=== PATIENT | female | born 1935 | race Caucasian/White ===

== ENCOUNTER 2025-03-20 14:51 | Inpatient (IN) | payer MEDICARE, OTHER ==
[~2025-03-20] VITALS: Ht 170.2 cm; Wt 73.2 kg
--- NOTE | 2025-03-20 15:16 | ED.PDOC ---
HPI Comments Robertyunior: Syncope HPI: Poor Historian. 89-year-old female brought in by ambulance from home after daughter witnessed a syncope without collapse. This happened after the patient had a shower and got up and was sitting on a chair while her daughter was air blowing drying her hair. Patient had a syncope and patient was assisted to the ground. When the patient regained consciousness she was in bed. She does not remember what happened. Per EMS, her initial vital signs were systolically in the 80s. Normal blood sugar, normal heart rate, no other acute symptoms. Denies any pain anywhere in her body. No trauma. Orthostatics were performed by EMS and they said that when she stood up her systolic blood pressure increased. Patient has history of dementia and is at baseline at this time. EMS reports that the patient when she had a syncopal/fainting episode she did vomit once. Past Medical History: Dementia, hyperkalemia, hypertension Past Surgical History: REVIEW OF SYSTEMS: CONSTITUTIONAL: Denies acute: fever, diaphoresis, chills, HEAD: Denies acute: headache, photophobia Eyes: Denies acute: Double vision, vision loss, eye pain, eye discharge. EARS: Denies acute: tinnitus, hearing loss, ear discharge, ear pain, THROAT: Denies acute: sore throat, swelling, difficulty swallowing , pain with swallowing, change in voice. NECK: Denies acute: neck pain, neck swelling, stiff neck. HEART: Denies acute : chest pain, palpitations, LUNGS: Denies acute: SOB, wheezing, cough, hemoptysis ABDOMEN: Denies acute: abdominal pain, Nausea, Vomiting, diarrhea, melena , hematemesis, hematochezia SKIN: Denies acute: rash, redness, lesions, itchiness. EXTREMITIES: Denies acute: calf pain, numbness, tingling, weakness, denies pain in extremity. Denies acute: Low back pain. Neuro: Denies acute: focal neurological deficit, motor or sensory focal neurological deficit, tremors, seizure like activity, confusion, , change in mental status, loss of bowel or bladder function, cauda equina like symptoms. : Denies acute: dysuria, hematuria, flank pain, increase in urinary frequency. PSYCH: Denies acute: hallucination, suicidal ideation, homicidal ideation. FEMALE: Denies acute: abnormal vaginal bleeding, foul odor, unusual discharge. PHYSICAL EXAM: General: -----no--acute distress, awake and alert. Head: normocephalic, atraumatic. Neck: supple, trachea is midline, no swelling. Throat: Normal phonation. Eyes:, no erythema, no purulent discharge, no proptosis, no icterus. Heart: regular rate, regular rhythm, no significant murmur appreciated. Lungs: no apparent respiratory distress, Able to speak in full sentences. No wheezing, no rhonchi, no crackles. No stridors Clear to auscultation bilaterally. Abdomen: non tender to palpation, non distended, soft, no guarding, no rebound, + bowel sounds. Neuro: Awake, Alert, oriented to name, self, situation, follows commands GCS=15. Speech is normal. Skin: no petechia, no purpura, no cyanosis, non-pale, not jaundice. Lower extremities: --no - Pitting edema no deformity, no focal swelling, no calf TTP. Makes eye contact. moves all four extremities. Face: no apparent facial droop. 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 ED COURSE: DISCLAIMER: This medical document was created using an electronic medical record system with voice recognition software and computerized dictation system. Although this document has been carefully reviewed, there might still be some phonetic and typographical errors. Occasional wrong-word or "sound-alike" substitutions may have occurred due to the inherent limitations of voice recognition software. These areas are purely typographical due to imperfections of the software programs and do not reflect any compromise in the patient's medical care. Please read the chart carefully and recognize, using context, where these substitutions have occurred. Chief Complaint: Syncope Time Seen by MD: 14:55 Primary Care Provider: UNKNOWN Reviewed Notes: Nurses Notes Allergies: Uncoded Allergies: lipitor,atorvastatin calcium (Allergy, Severe, 03/20/25) norco,vicodine,hydrocodone (Allergy, Severe, 03/20/25) Information Source: Patient Mode of Arrival: EMS X-Ray, Labs, Meds, VS Vital Signs Date Time Temp Pulse Resp B/P (MAP) Pulse Ox O2 Delivery O2 Flow Rate FiO2 03/20/25 20:46 97.6 90 16 181/80 (113) 96 97.6 03/20/25 18:28 68 16 98 Room Air* 0 21 03/20/25 17:33 97.9 88 18 158/66 (96) 96 97.9 03/20/25 15:08 98.3 78 16 126/67 (86) 95 98.3 03/20/25 14:52 81 Lab Test 03/20/25 18:36 03/20/25 16:39 03/20/25 15:49 Range/Units Troponin I High Sensitivity 4 3 L 3 L </=34 ng/L White Blood Count 7.4 4.4-10.8 10^3/uL Red Blood Count 4.66 4.0-5.20 10^6/uL Hemoglobin 13.9 12.2-16.2 g/dL Hematocrit 40.7 36.0-46.0 % Mean Corpuscular Volume 87.3 80.0-100.0 fL Mean Corpuscular Hemoglobin 29.8 28.0-32.0 pg Mean Corpuscular Hemoglobin Concent 34.1 32.0-36.0 g/dL Red Cell Distribution Width 14.2 11.8-14.3 % Platelet Count 277 140-450 10^3/uL Mean Platelet Volume 7.9 6.9-10.8 fL Neutrophils (%) (Auto) 72.0 37.0-80.0 % Lymphocytes (%) (Auto) 20.4 10.0-50.0 % Monocytes (%) (Auto) 5.9 0.0-12.0 % Eosinophils (%) (Auto) 1.2 0.0-7.0 % Basophils (%) (Auto) 0.5 0.0-2.0 % Neutrophils # (Auto) 5.4 1.6-8.6 10 ^3/uL Lymphocytes # (Auto) 1.5 0.4-5.4 10 ^3/uL Monocytes # (Auto) 0.4 0-1.3 10 ^3/uL Eosinophils # (Auto) 0.1 0-0.8 10 ^3/uL Basophils # (Auto) 0 0-0.2 10 ^3/uL Nucleated Red Blood Cells 0.0 % Sodium Level 140 136-145 mmol/L Potassium Level 4.2 3.5-5.1 mmol/L Chloride Level 105 98-107 mmol/L Carbon Dioxide Level 28 20-31 mmol/L Anion Gap 7 5-15 Blood Urea Nitrogen 24 H 9-23 mg/dL Creatinine 1.05 H 0.550-1.02 mg/dL Glomerular Filtration Rate Calc 51 >90 mL/min BUN/Creatinine Ratio 22.9 H 10.0-20.0 Serum Glucose 94 74-106 mg/dL Lactic Acid Level 1.2 0.4-2.0 mmol/L Calcium Level 10.0 8.7-10.4 mg/dL Magnesium Level 2.3 1.6-2.6 mg/dL Total Bilirubin 0.4 0.2-1.0 mg/dL Aspartate Amino Transferase (AST) 21 <34 U/L Alanine Aminotransferase (ALT) 14 7-40 U/L Alkaline Phosphatase 76 46-116 U/L Total Protein 6.7 5.7-8.2 g/dL Albumin 4.5 3.2-4.8 g/dL Current Medications Medications (Trade) Dose Ordered Sig/Herlinda Route Start Time Stop Time Status Last Admin Sodium Chloride 1,000 ml @ 1,000 mls/hr Q1H ONCE IV 03/20/25 15:15 03/20/25 16:14 DC 03/20/25 15:50 Ceftriaxone Sodium 50 ml @ 100 mls/hr ONCE ONCE IV 03/20/25 17:45 03/20/25 18:14 DC 03/20/25 18:27 [place] [id number] Ph: [phone] DIAGNOSTIC IMAGING Diagnostic Imaging Report : [id number] Signed PATIENT: YUNIOR BARILLAS ACCT: [id number] UNIT: [id number] : 1935 LOC: ER ROOM / BED: / AGE / SEX: 89 / F ADM STATUS: REG ER SERVICE [id number] ORDERING PHYSICIAN: YAMILET DONNELLY DO PROCEDURE(s): CXRP - CHEST PORTABLE REASON: Syncope ORDER NUMBER(s): [id number], ACCESSION NUMBER(s): [id number] CHEST RADIOGRAPH Indication: Syncope Technique: Single frontal view of the chest was obtained COMPARISON: None FINDINGS: The cardiac silhouette is enlarged. The lungs demonstrate bilateral patchy airspace opacities, most pronounced in the left lower. The pulmonary vasculature is prominent. Small left pleural. There is no pneumothorax. Aortic atherosclerotic disease. IMPRESSION: As above ATED BY: NETTE WILLIAMSON MD DICTATED DATE/TIME: 03/20/25 1603 SIGNED BY: NETTE WILLIAMSON MD SIGNED DATE/TIME: 03/20/25 1603 CC: Departure 1 Departure Time of Disposition: 15:30 Impression: Primary Impression: Syncope Additional Impressions: Hypotension Lung infiltrate Additional Instructions: Discharged With: Self Critical Care Note Critical Care Time?: No I personally scribed for YAMILET DONNELLY DO ([email or web address]) on 03/20/25 at 15:16. Electronically submitted by Jose Li ([facility] [employer] I personally scribed for YAMILET DONNELLY DO ([email or web address]) on 03/20/25 at 17:36. Electronically submitted by Jose Li ([facility] [employer] I personally scribed for YAMILET DONNELLY DO ([email or web address]) on 03/20/25 at 20:47. Electronically submitted by Jose Li ([email or web address]). I personally scribed for YAMILET DONNELLY DO ([email or web address]) on 03/20/25 at 21:29. Electronically submitted by Jose Li ([facility] [employer]). YAMILET DONNELLY DO Mar 20, 2025 15:16
[2025-03-20] MEDS: SODIUM CHLORIDE 0.9% 1,000 ML IV ONE (15:50)
--- NOTE | 2025-03-20 16:06 | DVH ---
CHEST RADIOGRAPH Indication: Syncope Technique: Single frontal view of the chest was obtained COMPARISON: None FINDINGS: The cardiac silhouette is enlarged. The lungs demonstrate bilateral patchy airspace opacities, most p ronounced in the left lower. The pulmonary vasculature is prominent. Small left pleural. There is no pneumothorax. Aortic atherosclerotic disease. IMPRESSION: As above
[2025-03-20 16:24] LABS: Basophils # (auto) 0 10 ^3/uL (0-0.2); Basophils % (auto) 0.5 % (0.0-2.0); Eosinophils # (auto) 0.1 10 ^3/uL (0-0.8); Eosinophils % (auto) 1.2 % (0.0-7.0); Hematocrit 40.7 % (36.0-46.0); Hemoglobin 13.9 g/dL (12.2-16.2); Lymphocytes # (auto) 1.5 10 ^3/uL (0.4-5.4); Lymphocytes % (auto) 20.4 % (10.0-50.0); Mean Corpuscular Hemoglobin 29.8 pg (28.0-32.0); Mean Corpuscular Hgb Conc. 34.1 g/dL (32.0-36.0); Mean Corpuscular Volume 87.3 fL (80.0-100.0); Monocytes # (auto) 0.4 10 ^3/uL (0-1.3); Monocytes % (auto) 5.9 % (0.0-12.0); Neutrophils # (auto) 5.4 10 ^3/uL (1.6-8.6); Platelet Count (auto) 277 10^3/uL (140-450); Red Blood Cells 4.66 10^6/uL (4.0-5.20); Red Cell Distribution Width 14.2 % (11.8-14.3); White Blood Cell 7.4 10^3/uL (4.4-10.8)
[2025-03-20 16:28] LABS: Alanine Aminotransferase 14 U/L (7-40); Albumin 4.5 g/dL (3.2-4.8); Alkaline Phosphatase 76 U/L (46-116); Anion Gap 7 (5-15); Aspartate Aminotransferase 21 U/L (<34); BUN/Creatinine Ratio 22.9 (10.0-20.0); Blood Urea Nitrogen 24 mg/dL (9-23); Carbon Dioxide 28 mmol/L (20-31); Chloride 105 mmol/L (98-107); Glucose 94 mg/dL (74-106); Magnesium 2.3 mg/dL (1.6-2.6); Potassium 4.2 mmol/L (3.5-5.1); Sodium 140 mmol/L (136-145); Total Protein 6.7 g/dL (5.7-8.2)
[2025-03-20 16:29] LABS: Bilirubin, Total 0.4 mg/dL (0.2-1.0)
[2025-03-20] MEDS: cefTRIAXone 1GM/50ML D5W 50 ML IV ONE (18:27)
[2025-03-20 18:28] VITALS: PULSE 68; RESP 16; O2SAT 98
--- NOTE | 2025-03-20 18:58 | ECG ---
[facility] Test Date: 2025-03-20 Test Time: 14:52:11 Pat Name: HOLLY BARILLAS Department: ED Room: 0220T Gender: F Access Clerk: DEBRA : 1935 Requested By: YAMILET DONNELLY Order Number: [id number] Reading MD: Wenceslao Escobedo Measurements Intervals [place] Rate: 81 P: 77 DC: 152 QRS: 10 QRSD: 69 T: 74 QT: 382 QTc: 444 Interpretive Statements Sinus rhythm Borderline T wave abnormalities Electronically Signed On 03-21-2025 20:13:14 PDT by Wenceslao Escobedo Please click the below link to view image of tracing.
[2025-03-20 21:36] LABS: Urine Bacteria None Seen /hpf (None Seen)
[2025-03-20 21:54] LABS: Urine Blood Negative /uL (Negative); Urine Clarity Clear (Clear); Urine Color Yellow (Yellow); Urine Protein, UAD Negative (Negative); Urine Squamous Epithelial Cell FEW /hpf (<5); Urine Urobilinogen Normal (Negative); Urine WBC 48 /HPF (0-5); Urine pH 6.5 (5.0-9.0)
[2025-03-20] MEDS: hydrALAZINE HCL 20 MG/ML VL IV ONE (22:54)
--- NOTE | 2025-03-20 23:14 | DVHHP2 ---
History of Present Illness Reason for Visit: Syncope History of Present Illness The patient is a 89-year-old female with past medical history of dementia and hypertension who presented to [facility] for evaluation of witnessed syncopal episode. As reported by daughter, the patient had a shower, got up sitting on a chair while her daughter was air blowing drying her hair, she had syncope and was assisted to the ground. When the patient regained consciousness in bed, she does not recall what happened. Patient was seen and evaluated in the ED, laboratory data shows WBC 7.4, platelets 277, sodium 140, potassium 4.2, BUN 24, creatinine 1.05, glucose 94, calcium 10.0, troponin 3, blood pressure 163/74, heart rate 92, temperature 97.8 F, O2 saturation 96% on room air. Chest x-ray revealing bilateral patchy airspace opacities, most pronounced in the left lower, the pulmonary vasculature is prominent, small left pleural, no pneumothorax. Please see medication orders section in the computer. On my assessment, family member at bedside, patient denied chest pain, no headache, no dizziness, no diaphoresis, no shortness of breath, no nausea, no vomiting, no fever, no chills. Patient was admitted for further evaluation and medical management. Past Medical History Dementia, hyperkalemia, hypertension Past Surgical History Denies all surgeries Family History Reviewed, noncontributory to the management of this case. Past Social History The patient lives at home, denies smoking, alcohol or illicit drugs abuse. Review of Systems Constitutional: Yes: Weakness; No: Fever, Chills, Sweats, Malaise, Other Eyes: No: Pain, Vision change, Conjunctivae inflammation, Eyelid inflammation, Other, Redness ENT: No: Ear pain, Ear discharge, Nose pain, Nose discharge, Nose congestion, Mouth pain, Mouth swelling, Throat pain, Throat swelling, Other Respiratory: No: Cough, Dry, Shortness of breath, SOB with excertion, Wheezing, Hemoptysis, Pleuritic Pain, Sputum, Wheezing, Other Cardiovascular: Other (Syncope); No: Chest Pain, Palpitations, Orthopnea, Paroxysmal Noc. Dyspnea, Edema, Lt Headedness Gastrointestinal: No: Nausea, Vomiting, Abdominal Pain, Diarrhea, Constipation, Melena, Hematochezia, Other Genitourinary: No Dysuria, No Frequency, No Incontinence, No Hematuria, No Re tention, No Other Musculoskeletal: No: other, neck pain, shoulder pain, arm pain, back pain, hand pain, leg pain, foot pain Skin: No: Rash, Lesions, Jaundice, Bruising, Other Neurological: No: Weakness, Numbness, Incoordination, Change in speech, Confusion, Seizures, Other Allergies: Uncoded Allergies: lipitor,atorvastatin calcium (Allergy, Severe, 03/20/25) norco,vicodine,hydrocodone (Allergy, Severe, 03/20/25) Medications Current Medications Medications Dose Ordered Sig/Herlinda Route Start Time Stop Time Status Last Admin Dose Admin Hydralazine HCl 10 mg Q6HP PRN IV 03/20/25 23:15 Lisinopril 20 mg DAILY PO 03/21/25 10:00 Ondansetron HCl 4 mg Q4HP PRN IV 03/20/25 23:15 Docusate Sodium 100 mg BIDPRN PRN PO 03/20/25 23:15 Acetaminophen 650 mg Q6HP PRN PO 03/20/25 23:15 Future Hold Exam Vital Signs Vital Signs Date Time Temp Pulse Resp B/P (MAP) Pulse Ox O2 Delivery O2 Flow Rate FiO2 03/20/25 22:54 163/74 03/20/25 22:49 97.8 92 20 96 97.8 03/20/25 18:28 Room Air* 0 21 General Appearance: Alert, Oriented X3, Cooperative, No acute distress HEENT: Atraumatic, PERRLA, EOMI, Mucous membr. moist/pink Respiratory: Normal air movement Cardiovascular: Regular rate, Normal S1, Normal S2, No murmurs Abdominal: Normal bowel sounds, Soft, No tenderness, No hepatospenomegaly, No masses Extremities: No clubbing, No cyanosis, No edema, Normal pulses, No tenderness/swelling Skin: No rashes, No breakdown, No significant lesion Neuro: Normal speech, Normal tone, Sensation intact, Cranial nerves 3-12 NL, Reflexes 2+, Other (Generalized weakness) Psych/Mental Status: Mood NL Labs/Xrays Labs Test 03/20/25 20:23 03/20/25 18:36 03/20/25 15:49 Range/Units Urine Color Yellow Yellow Urine Clarity Clear Clear Urine pH 6.5 5.0-9.0 Urine Specific [place] 1.020 1.001-1.035 Urine Protein Negative Negative Urine Ketones Negative Negative Urine Blood Negative Negative /uL Urine Nitrite Negative Negative Urine Bilirubin Negative Negative Urine Urobilinogen Normal Negative mg/dL Urine Leukocyte Esterase 3+ Negative /uL Urine RBC 3 0 - 4 /hpf Urine Microscopic WBC 48 H 0-5 /HPF Urine Squamous Epithelial Cells Few <5 /hpf Urine Bacteria None seen None Seen /hpf Urine Glucose Normal Normal mg/dL Troponin I High Sensitivity 4 </=34 ng/L White Blood Count 7.4 4.4-10.8 10^3/uL Red Blood Count 4.66 4.0-5.20 10^6/uL Hemoglobin 13.9 12.2-16.2 g/dL Hematocrit 40.7 36.0-46.0 % Mean Corpuscular Volume 87.3 80.0-100.0 fL Mean Corpuscular Hemoglobin 29.8 28.0-32.0 pg Mean Corpuscular Hemoglobin Concent 34.1 32.0-36.0 g/dL Red Cell Distribution Width 14.2 11.8-14.3 % Platelet Count 277 140-450 10^3/uL Mean Platelet Volume 7.9 6.9-10.8 fL Neutrophils (%) (Auto) 72.0 37.0-80.0 % Lymphocytes (%) (Auto) 20.4 10.0-50.0 % Monocytes (%) (Auto) 5.9 0.0-12.0 % Eosinophils (%) (Auto) 1.2 0.0-7.0 % Basophils (%) (Auto) 0.5 0.0-2.0 % Neutrophils # (Auto) 5.4 1.6-8.6 10 ^3/uL Lymphocytes # (Auto) 1.5 0.4-5.4 10 ^3/uL Monocytes # (Auto) 0.4 0-1.3 10 ^3/uL Eosinophils # (Auto) 0.1 0-0.8 10 ^3/uL Basophils # (Auto) 0 0-0.2 10 ^3/uL Nucleated Red Blood Cells 0.0 % Sodium Level 140 136-145 mmol/L Potassium Level 4.2 3.5-5.1 mmol/L Chloride Level 105 98-107 mmol/L Carbon Dioxide Level 28 20-31 mmol/L Anion Gap 7 5-15 Blood Urea Nitrogen 24 H 9-23 mg/dL Creatinine 1.05 H 0.550-1.02 mg/dL Glomerular Filtration Rate Calc 51 >90 mL/min BUN/Creatinine Ratio 22.9 H 10.0-20.0 Serum Glucose 94 74-106 mg/dL Lactic Acid Level 1.2 0.4-2.0 mmol/L Calcium Level 10.0 8.7-10.4 mg/dL Magnesium Level 2.3 1.6-2.6 mg/dL Total Bilirubin 0.4 0.2-1.0 mg/dL Aspartate Amino Transferase (AST) 21 <34 U/L Alanine Aminotransferase (ALT) 14 7-40 U/L Alkaline Phosphatase 76 46-116 U/L Total Protein 6.7 5.7-8.2 g/dL Albumin 4.5 3.2-4.8 g/dL PATIENT: HOLLY BARILLAS ACCT: [id number] UNIT: [id number] : 1935 LOC: ER ROOM / BED: / AGE / SEX: 89 / F ADM STATUS: REG ER SERVICE [id number] ORDERING PHYSICIAN: YAMILET DONNELLY DO PROCEDURE(s): CXRP - CHEST PORTABLE REASON: Syncope ORDER NUMBER(s): [id number], ACCESSION NUMBER(s): [id number] CHEST RADIOGRAPH Indication: Syncope Technique: Single frontal view of the chest was obtained COMPARISON: None FINDINGS: The cardiac silhouette is enlarged. The lungs demonstrate bilateral patchy airspace opacities, most pronounced in the left lower. The pulmonary vasculature is prominent. Small left pleural. There is no pneumothorax. Aortic atherosclerotic disease. IMPRESSION: As above Assessment/Plan Assessment/Plan Syncope Hypertension Lung infiltrate Generalized weakness Plan 1. Admit to telemetry unit 2. Breathing treatment 3. Pain control management 4. IV antibiotic management 5. Management of fluids and electrolytes 6. Consultation for hospitalist 7. Diagnostic test chest x-ray 8. DVT prophylaxis-on SCDs 9. Repeat labs CBC, CMP in a.m. 10. Home medication reviewed and reconciled 11. Continue with current medical management 12. Treatment plan discussed with patient and RN. Patient verbalized understanding. Plan discussed with: Patient, Daughter (At bedside), Other (RN) My Orders Orders - CLINT STREETER DNP Procedure Category Date Status Time Hydralazine Injection PHA 03/20/25 In Process (Apresoline Inject 23:15 Lisinopril Tablet PHA 03/21/25 In Process (Zestril Tablet) 10:00 Allergies LUANN 03/20/25 In Process 23:02 Code Status CODE 03/20/25 Transmitted 23:02 Oxygen Per Hour RT 03/20/25 Transmitted 23:02 Ondansetron Hcl PHA 03/20/25 In Process (Zofran) 23:15 Docusate Sodium PHA 03/20/25 In Process Capsule (Colace 23:15 Fall Risk Precautions LUANN 03/20/[address] 23:02 Complete Blood Count LAB 03/21/25 Verified 04:00 Comprehensive LAB 03/21/25 Verified Metabolic Panel 04:00 Cardiac DIET 03/21/25 Transmitted Diet-2gna,Lofat,Lochol Breakfast Condition: Serious LUANN 03/20/25 In Process 23:02 Acetaminophen Tablet PHA 03/20/25 In Process (Tylenol Tablet) 23:15 Bedrest With Bathroom LUANN 03/20/25 In Process Privileg 23:02 Sequential LUANN 03/20/25 In Process Compression Device Problem List: (1) Syncope (2) Hypertension (3) Lung infiltrate (4) Generalized weakness Date of Service: Mar 20, 2025 Billing Provider: CLINT STREETER DNP Common Visit Codes: [id number] INP/OBS CARE (HIGH) CLINT STREETER DNP Mar 20, 2025 23:13
[2025-03-20] MEDS ORDERED: ACETAMINOPHEN 325 MG TAB PO PRN (23:15)
[2025-03-20] MEDS ORDERED: ONDANSETRON HCL 4 MG/2 ML VIAL IV PRN (23:15)
[2025-03-20] MEDS ORDERED: NITROGLYCERIN 0.4 MG SL TAB SL PRN (23:15)
[2025-03-20] MEDS ORDERED: MORPHINE SULFATE INJ 2 MG/ml SYRG IV PRN ×2 (23:15→23:45)
[2025-03-20] MEDS ORDERED: DOCUSATE SOD 100 MG CAP PO PRN (23:15)
[2025-03-21] VITALS (8 sets, daily range): BP systolic 140–178; BP diastolic 64–94; PULSE 77–105; RESP 16–20; TEMP 97.5–98.3; O2SAT 95–100
[2025-03-21] MEDS ORDERED: EZET-10 PO (00:43)
[2025-03-21] MEDS ORDERED: LISI20TA56 PO (00:43)
[2025-03-21 07:32] LABS: Basophils # (auto) 0 10 ^3/uL (0-0.2); Basophils % (auto) 0.5 % (0.0-2.0); Eosinophils # (auto) 0.2 10 ^3/uL (0-0.8); Eosinophils % (auto) 2.1 % (0.0-7.0); Hematocrit 38.1 % (36.0-46.0); Hemoglobin 12.8 g/dL (12.2-16.2); Lymphocytes # (auto) 2.7 10 ^3/uL (0.4-5.4); Mean Corpuscular Hemoglobin 29.4 pg (28.0-32.0); Mean Corpuscular Hgb Conc. 33.6 g/dL (32.0-36.0); Mean Corpuscular Volume 87.4 fL (80.0-100.0); Monocytes # (auto) 0.6 10 ^3/uL (0-1.3); Monocytes % (auto) 6.6 % (0.0-12.0); Neutrophils # (auto) 5.7 10 ^3/uL (1.6-8.6); Neutrophils % (auto) 61.8 % (37.0-80.0); Nucleated Red Blood Cells % 0.1 %; Platelet Count (auto) 264 10^3/uL (140-450); Red Blood Cells 4.36 10^6/uL (4.0-5.20); Red Cell Distribution Width 14.2 % (11.8-14.3); White Blood Cell 9.3 10^3/uL (4.4-10.8)
[2025-03-21 08:09] LABS: Alanine Aminotransferase 13 U/L (7-40); Albumin 4.2 g/dL (3.2-4.8); Alkaline Phosphatase 70 U/L (46-116); Anion Gap 11 (5-15); Aspartate Aminotransferase 23 U/L (<34); BUN/Creatinine Ratio 19.3 (10.0-20.0); Bilirubin, Total 0.7 mg/dL (0.2-1.0); Blood Urea Nitrogen 17 mg/dL (9-23); Calcium 9.9 mg/dL (8.7-10.4); Carbon Dioxide 24 mmol/L (20-31); Chloride 106 mmol/L (98-107); Glucose 87 mg/dL (74-106); Potassium 3.5 mmol/L (3.5-5.1); Sodium 141 mmol/L (136-145); Total Protein 6.6 g/dL (5.7-8.2)
[2025-03-21] MEDS: AZITHROMYCIN 500MG/ 250ML 250 ML IV SCH (09:23)
[2025-03-21] MEDS: LISINOPRIL 20 MG TAB PO SCH (09:23)
--- NOTE | 2025-03-21 12:57 | DVHPN2 ---
Reviewed: Care Plan, H&P, Labs, Medications, Previous Orders, Radiology Changes from previous H/P or p: No Changes Eyes: No Pain, No Vision change, No Conjunctivae inflammation, No Eyelid inflammation, No Other, No Redness ENT: No Ear pain, No Ear discharge, No Nose pain, No Nose discharge, No Nose congestion, No Mouth pain, No Mouth swelling, No Throat pain, No Throat swelling, No Other Cardiovascular: No Chest Pain, No Palpitations, No Orthopnea, No Paroxysmal Noc. Dyspnea, No Edema, No Lt Headedness; Other (Syncope) Respiratory: No Cough, No Dry, No Shortness of breath, No SOB with excertion, No Wheezing, No Hemoptysis, No Pleuritic Pain, No Sputum, No Other Gastrointestinal: No Nausea, No Vomiting, No Abdominal Pain, No Diarrhea, No Constipation, No Melena, No Hematochezia, No Other Genitourinary: No Dysuria, No Frequency, No Incontinence, No Hematuria, No Retention, No Other Musculoskeletal: No other, No neck pain, No shoulder pain, No arm pain, No back pain, No hand pain, No leg pain, No foot pain Skin: No Rash, No Lesions, No Jaundice, No Bruising, No Other Objective Vitals Vital Signs Date Time Temp Pulse Resp B/P (MAP) Pulse Ox O2 Delivery O2 Flow Rate FiO2 03/21/25 09:23 166/76 03/21/25 08:56 98.2 85 16 96 98.2 03/21/25 00:38 Room Air* 0 21 Intake/Output Intake and Output 03/21/25 07:00 Intake Total 1050 ml Balance 1050 ml Intake Oral 0 ml IV Total 1050 ml # Voids 1 Medications Current Medications Medications Dose Ordered Sig/Herlinda Route Start Time Stop Time Status Last Admin Dose Admin Hydralazine HCl 10 mg Q6HP PRN IV 03/20/25 23:15 Lisinopril 20 mg DAILY PO 03/21/25 10:00 03/21/25 09:23 20 MG Ondansetron HCl 4 mg Q4HP PRN IV 03/20/25 23:15 Docusate Sodium 100 mg BIDPRN PRN PO 03/20/25 23:15 Nitroglycerin 0.4 mg Q5MINP PRN SL 03/20/25 23:15 Morphine Sulfate 2 mg Q30M PRN IV 03/20/25 23:45 Hold Azithromycin 250 ml @ 125 mls/hr DAILY IV 03/21/25 10:00 03/21/25 09:23 125 MLS/HR Laboratory Results Laboratory Tests 03/21/25 05:23 Chemistry Test 03/20/25 15:49 03/21/25 05:23 Albumin 4.5 g/dL (3.2-4.8) 4.2 g/dL (3.2-4.8) Calcium Level 10.0 mg/dL (8.7-10.4) 9.9 mg/dL (8.7-10.4) Magnesium Level 2.3 mg/dL (1.6-2.6) Total Protein 6.7 g/dL (5.7-8.2) 6.6 g/dL (5.7-8.2) LFT Test 03/20/25 15:49 03/21/25 05:23 Alanine Aminotransferase (ALT) 14 U/L (7-40) 13 U/L (7-40) Alkaline Phosphatase 76 U/L (46-116) 70 U/L (46-116) Aspartate Amino Transferase (AST) 21 U/L (<34) 23 U/L (<34) Total Bilirubin 0.4 mg/dL (0.2-1.0) 0.7 mg/dL (0.2-1.0) Urinalysis Test 03/20/25 20:23 Urine Color Yellow (Yellow) Urine Clarity Clear (Clear) Urine pH 6.5 (5.0-9.0) Urine Specific [place] 1.020 (1.001-1.035) Urine Protein Negative (Negative) Urine Ketones Negative (Negative) Urine Blood Negative /uL (Negative) Urine Nitrite Negative (Negative) Urine Bilirubin Negative (Negative) Urine Urobilinogen Normal mg/dL (Negative) Urine Leukocyte Esterase 3+ /uL (Negative) Urine RBC 3 /hpf (0 - 4) Urine Microscopic WBC 48 /HPF (0-5) H Urine Squamous Epithelial Cells Few /hpf (<5) Urine Bacteria None seen /hpf (None Seen) Urine Glucose Normal mg/dL (Normal) Labs and/or images reviewed: Labs reviewed by me, Image(s) reviewed by me Assessment/Plan Assessment/Plan Syncope : CT head carotid ultrasound neurology echocardiogram consult, cardiology consult Hypertension Lung infiltrate : Azithromycin UTI: Urine cultures Rocephin Generalized weakness Daughter Isaura at bedside Not stable for transfer to [place] Patient is full code Time spent 70 mts Advanced care planning time 20 mts Plan discussed with: Patient My Orders Orders - DARRIN TERRY MD Procedure Category Date Status Time Head Without Contrast CT 03/21/25 Transmitted 12:50 Carotid Duplx W Color US 03/21/25 Transmitted DOP 12:50 Date of Service: Mar 21, 2025 Billing Provider: DARRIN TERRY MD Common Visit Codes: [id number] CARE 30-74 MIN DARRIN TERRY MD Mar 21, 2025 12:57
[2025-03-21] MEDS: cefTRIAXone 1GM/50ML D5W 50 ML IV ONE (14:29)
--- NOTE | 2025-03-21 15:11 | DVH ---
EXAM: CT HEAD WITHOUT CONTRAST INDICATION: Syncope TECHNIQUE: CT of the head without intravenous contrast. Radiation Dose Information: CT Dose: CTDI volume is 52.61 mGy. Dose-length product is 863.9 mGy*cm The dose indicators for CT are the volume Computed Tomography (CT) Dose Index (CTDIvol) and the Dose Length Product (DLP), and are measured in units of mGy and mGy-cm, respectively. These indicators are not patient dose, but values generated from the CT scanner acquisition factors. The report includes radiation exposure data for exposures received during this examination. COMPARISON: None FINDINGS: There is no evidence of acute intracranial hemorrhage, extra-axial collection, mass effect, midline s hift, herniation or hydrocephalus. The ventricles, sulci and cisterns are age appropriate. The leroy-white differentiation is intact. Patchy periventricular and subcortical white matter hypoattenuation is nonspecific but may be related to small vessel ischemic disease. The visualized paranasal sinuses and mastoid air cells are clear. The surrounding soft tissues and osseous structures are unremarkable. IMPRESSION: 1. No acute intracranial abnormality.
--- NOTE | 2025-03-21 16:11 | DVH ---
US CAROTID DOPPLER CLINICAL INDICATION: syncope TECHNIQUE: Multiple grayscale, color Doppler and spectral Doppler ultrasound images were obtained thr oughout both carotid systems. COMPARISON: None FINDINGS: RIGHT: CCA PSV: 96 cm/s ECA PSV: 77 cm/s ICA PSV: 121 cm/s ICA EDV: 29 cm/s ICA/CCA Ratio: 1.3 Vertebral artery: Patent, antegrade flow. Grayscale images demonstrate mild calcified plaque at the carotid bifurcation and no visible stenosi s. Spectral analysis demonstrates no hemodynamically significant CCA or ICA stenosis. LEFT: CCA PSV: 72 cm/s ECA PSV: 140 cm/s ICA PSV: 103 cm/s ICA EDV: 20 cm/s ICA/CCA Ratio: 1.4 Vertebral artery: Patent, antegrade flow. Grayscale images demonstrate mild atherosclerotic plaque at the carotid bifurcation although no visib le stenosis. Spectral analysis demonstrates no hemodynamically significant CCA or ICA stenosis. IMPRESSION: No without evidence of hemodynamically significant CCA or ICA stenosis.
--- NOTE | 2025-03-21 18:39 | DVHINCON2 ---
Date of service: Mar 21, [address] Doll Reason for Consultation Syncope History of Present Illness Ms. Jones is a 89 years old right-handed female with a history of hypertension, hyperkalemia, dementia, she was brought to the [facility] on 03/20/2025 with a chief company of syncopal event, at this time, she is alert, oriented to person, place, with good social skills, but she does not remember why she came to the hospital. The history is obtained from her son, who is in the room, and chart review Apparently, after shower, when she was sitting in a chair, her daughter was air blowing drying her hair, she slumped and was helped by the family to the ground and then later she recovered mentally, without convulsion. Per EMS, her initial systolic blood pressure was in the 80s, she had normal glucose level, heart rate. She had a negative orthostatic vital tests at home. He has never had similar problems previously, no history of seizure She had progressive short-term memory difficulty for more than one year, she tatiana etimes does not remember her children's names. It isn't clear if the patient has seen a a doctor specific for her memory problems/dementia Urinalysis, 03/20/2025, WBC: 48, urine leukocyte esterase: 3+ CBC, 03/21/2025: Unremarkable CMP, 03/21/2025: Unremarkable Carotid Doppler, 03/21/2025: No without evidence of hemodynamically significant CCA or ICA stenosis. CT head, 03/21/2025: No acute intracranial abnormality Past Medical History Hypertension, hyperkalemia, dementia Past Surgical History Appendectomy Family History: Cerebrovascular accident (CVA) G8 MOTHER FH: colon cancer G8 FATHER Family History Hypertension, stroke, cancer, no dementia Social History She was a tobacco smoker, but no history of drug or alcohol abuse Allergies: Uncoded Allergies: lipitor,atorvastatin calcium (Allergy, Severe, 03/20/25) norco,vicodine,hydrocodone (Allergy, Severe, 03/20/25) Home Meds Reported Medications Ezetimibe (Ezetimibe) 10 Mg Tab, 0.5 TAB PO DAILY 03/21/25 Lisinopril (Lisinopril) 20 Mg Tab, 1 TAB PO DAILY 03/21/25 Current Medications Current Medications Medications (Trade) Dose Ordered Sig/Herlinda Route PRN Reason Start Time Stop Time Status Last Admin Hydralazine HCl (Apresoline Injection) 10 mg Q6HP PRN IV SBP>150 03/20/25 23:15 Lisinopril (Zestril Tablet) 20 mg DAILY PO 03/21/25 10:00 03/21/25 09:23 Ondansetron HCl (Zofran) 4 mg Q4HP PRN IV NAUSEA / VOMITING 03/20/25 23:15 Docusate Sodium (Colace Capsule) 100 mg BIDPRN PRN PO FOR CONSTIPATION 03/20/25 23:15 Acetaminophen (Tylenol Tablet) 650 mg Q6HP PRN PO PAIN SCALE 1-3 OR TEMP>100.4 03/20/25 23:15 03/21/25 00:29 DC Nitroglycerin (Ntrostat Sublingual) 0.4 mg Q5MINP PRN SL FOR CHEST PAIN 03/20/25 23:15 Morphine Sulfate 2 mg Q30M PRN IV FOR CHEST PAIN 03/20/25 23:15 03/20/25 23:38 DC Morphine Sulfate 2 mg Q30M PRN IV FOR CHEST PAIN 03/20/25 23:45 Hold Azithromycin 250 ml @ 125 mls/hr DAILY IV 03/21/25 10:00 03/21/25 09:23 Ceftriaxone Sodium 50 ml @ 100 mls/hr DAILY@09 IV 03/22/25 09:00 Review of Systems Reviewed, noncontributory to the management of this case. Vital Signs Vital Signs Date Time Temp Pulse Resp B/P (MAP) Pulse Ox O2 Delivery O2 Flow Rate FiO2 03/21/25 16:49 97.9 88 17 145/64 (91) 96 97.9 03/21/25 08:00 Room Air* 0 21 Physical Exam GENERAL EXAM: General: the patient is well developed and nourished. No acute distress. HEENT: Normocephalic, neck is supple, no carotid bruits. No mass. RESPIRATORY: Normal respiratory effort with symmetrical lung expansion. Lungs clear to auscultation. CARDIOVASCULAR: Regular rate and rhythm with no murmurs. S1, S2. ABDOMEN: Soft, nontender, normal bowel sound NEUROLOGICAL: MENTAL STATUS: Awake and alert. Oriented to person, place poor historian SPEECH, LANGUAGE, HIGHER CORTICAL FUNCTION: no aphasia or dysathria. CRANIAL NERVES: #2: Intact visual silva to confrontation. The optic discs were sharp. #3,4,6: Pupils are equal, round and reactive. EOMs full and conjugate. #5: Facial sensation intact in all three divisions bilaterally. Mandibular strength intact. #7: Facial muscles symmetrical and strength intact. #8: Hearing grossly normal to voice. #9,10: Uvula and soft palate rise in the midline. Swallow and voice are normal. #11: Trapezius and sternomastoid strength intact bilaterally. #12: Tongue midline. No fasciculations or atrophy. SENSATION: Sensation to touch and pinprick is normal. MOTOR: Normal tone in the upper and lower extremity. Normal muscle bulk. No fasciculations. No abnormal movements or posturing. Muscle strength of the major groups in the upper extremities is 5/5. Muscle strength of the major groups in the lower extremities is 5/5. REFLEXES: Deep tendon reflexes normal and symmetrical. No pathological reflexes. CEREBELLAR/COORDINATION: Finger to nose is normal bilaterally. GAIT/STATION: deferred. Labs/Diagnostic Data Labs Test 03/21/25 05:23 03/20/25 20:23 03/20/25 18:36 03/20/25 15:49 Range/Units White Blood Count 9.3 # 4.4-10.8 10^3/uL Red Blood Count 4.36 4.0-5.20 10^6/uL Hemoglobin 12.8 12.2-16.2 g/dL Hematocrit 38.1 36.0-46.0 % Mean Corpuscular Volume 87.4 80.0-100.0 fL Mean Corpuscular Hemoglobin 29.4 28.0-32.0 pg Mean Corpuscular Hemoglobin Concent 33.6 32.0-36.0 g/dL Red Cell Distribution Width 14.2 11.8-14.3 % Platelet Count 264 140-450 10^3/uL Mean Platelet Volume 8.4 6.9-10.8 fL Neutrophils (%) (Auto) 61.8 37.0-80.0 % Lymphocytes (%) (Auto) 29.0 10.0-50.0 % Monocytes (%) (Auto) 6.6 0.0-12.0 % Eosinophils (%) (Auto) 2.1 0.0-7.0 % Basophils (%) (Auto) 0.5 0.0-2.0 % Neutrophils # (Auto) 5.7 1.6-8.6 10 ^3/uL Lymphocytes # (Auto) 2.7 0.4-5.4 10 ^3/uL Monocytes # (Auto) 0.6 0-1.3 10 ^3/uL Eosinophils # (Auto) 0.2 0-0.8 10 ^3/uL Basophils # (Auto) 0 0-0.2 10 ^3/uL Nucleated Red Blood Cells 0.1 % Sodium Level 141 136-145 mmol/L Potassium Level 3.5 3.5-5.1 mmol/L Chloride Level 106 98-107 mmol/L Carbon Dioxide Level 24 20-31 mmol/L Anion Gap 11 5-15 Blood Urea Nitrogen 17 9-23 mg/dL Creatinine 0.88 0.550-1.02 mg/dL Glomerular Filtration Rate Calc 63 >90 mL/min BUN/Creatinine Ratio 19.3 10.0-20.0 Serum Glucose 87 74-106 mg/dL Calcium Level 9.9 8.7-10.4 mg/dL Total Bilirubin 0.7 0.2-1.0 mg/dL Aspartate Amino Transferase (AST) 23 <34 U/L Alanine Aminotransferase (ALT) 13 7-40 U/L Alkaline Phosphatase 70 46-116 U/L Total Protein 6.6 5.7-8.2 g/dL Albumin 4.2 3.2-4.8 g/dL Urine Color Yellow Yellow Urine Clarity Clear Clear Urine pH 6.5 5.0-9.0 Urine Specific [place] 1.020 1.001-1.035 Urine Protein Negative Negative Urine Ketones Negative Negative Urine Blood Negative Negative /uL Urine Nitrite Negative Negative Urine Bilirubin Negative Negative Urine Urobilinogen Normal Negative mg/dL Urine Leukocyte Esterase 3+ Negative /uL Urine RBC 3 0 - 4 /hpf Urine Microscopic WBC 48 H 0-5 /HPF Urine Squamous Epithelial Cells Few <5 /hpf Urine Bacteria None seen None Seen /hpf Urine Glucose Normal Normal mg/dL Troponin I High Sensitivity 4 </=34 ng/L Lactic Acid Level 1.2 0.4-2.0 mmol/L Magnesium Level 2.3 1.6-2.6 mg/dL Assessment Passing out event on 03/20/2025 Syncope Partial complex seizure, less likely TIA/stroke, less likely Cognitive dysfunction, she had dementia Alzheimer disease Other etiology Urinary tract infection Plan/Recommendation Monitoring Supportive treatment Telemetry Vitamin B12, folic acid, TSH, FT4 EEG MR brain scan IV antiemetics Up to chair Physical therapy Cardiology evaluation More recommendation per clinical course Progress: poor This medical document was created using an electronic medical record system with [employer] dictation system. Although this document has been carefully reviewed, there may still be some phonetic and typographical errors. These areas are purely typographical due to imperfections of the software programs, and do not reflect any compromise in the patient's medical care. Plan discussed with: Son, Other RELL SAN MD Mar 21, 2025 18:38
[2025-03-21] MEDS ORDERED: LORazepam 2MG/ML-1ML VIAL IV PRN (19:15)
--- NOTE | 2025-03-21 23:38 | DVHINCON2 ---
Date of service: Mar 21, 2025 Referring Physician Lavon Reason for Consultation Syncope History of Present Illness This is a 89-year-old female with a PMH of Dementia, hyperkalemia, hypertension who was brought in by ambulance from home after her daughter witnessed syncope without collapse. Patient took a shower and got up and was sitting on a chair while her daughter was air blowing drying her hair, patient had a syncopal episode and patient was assisted to the ground by her daughter. When the patient regained consciousness she was in bed and does not remember what happened. Per EMS, the patient's initial vital signs on scene were systolically in the 80s. No trauma or injury reported. Orthostatics were performed by EMS and they said that when she stood up her systolic blood pressure increased. Patient has history of dementia and is at baseline at this time. EMS reports after the syncopal/fainting episode she did vomit once. CBC and CMP are unremarkable. Troponin is negative x 3. Chest x-ray shows bilateral patchy airspace opacities, most pronounced in the left lower, small left pleural. Patient was admitted to the hospital. I am asked to consult on this patient. Family History: Cerebrovascular accident (CVA) G8 MOTHER FH: colon cancer G8 FATHER Allergies: Uncoded Allergies: lipitor,atorvastatin calcium (Allergy, Severe, 03/20/25) norco,vicodine,hydrocodone (Allergy, Severe, 03/20/25) Home Meds Reported Medications Ezetimibe (Ezetimibe) 10 Mg Tab, 0.5 TAB PO DAILY 03/21/25 Lisinopril (Lisinopril) 20 Mg Tab, 1 TAB PO DAILY 03/21/25 Current Medications Current Medications Medications (Trade) Dose Ordered Sig/Herlinda Route PRN Reason Start Time Stop Time Status Last Admin Hydralazine HCl (Apresoline Injection) 10 mg Q6HP PRN IV SBP>150 03/20/25 23:15 Lisinopril (Zestril Tablet) 20 mg DAILY PO 03/21/25 10:00 03/21/25 09:23 Ondansetron HCl (Zofran) 4 mg Q4HP PRN IV NAUSEA / VOMITING 03/20/25 23:15 Docusate Sodium (Colace Capsule) 100 mg BIDPRN PRN PO FOR CONSTIPATION 03/20/25 23:15 Acetaminophen (Tylenol Tablet) 650 mg Q6HP PRN PO PAIN SCALE 1-3 OR TEMP>100.4 03/20/25 23:15 03/21/25 00:29 DC Nitroglycerin (Ntrostat Sublingual) 0.4 mg Q5MINP PRN SL FOR CHEST PAIN 03/20/25 23:15 Morphine Sulfate 2 mg Q30M PRN IV FOR CHEST PAIN 03/20/25 23:15 03/20/25 23:38 DC Morphine Sulfate 2 mg Q30M PRN IV FOR CHEST PAIN 03/20/25 23:45 Hold Azithromycin 250 ml @ 125 mls/hr DAILY IV 03/21/25 10:00 03/21/25 09:23 Ceftriaxone Sodium 50 ml @ 100 mls/hr DAILY@09 IV 03/22/25 09:00 Lorazepam (Ativan Inj) 1 mg ONCE PRN IV MRI 03/21/25 19:15 03/21/25 23:59 Review of Systems CONSTITUTIONAL: Denies acute: fever, diaphoresis, chills, HEAD:Denies acute: headache, photophobia Eyes:Denies acute: Double vision, vision loss, eye pain, eye discharge. EARS: Denies acute: tinnitus, hearing loss, ear discharge, ear pain, THROAT: Denies acute: sore throat, swelling, difficulty swallowing , pain with swallowing, change in voice. NECK:Denies acute: neck pain, neck swelling, stiff neck. HEART:Denies acute : chest pain, palpitations, LUNGS:Denies acute: SOB, wheezing, cough, hemoptysis ABDOMEN: Denies acute: abdominal pain, Nausea, Vomiting, diarrhea, melena , hematemesis, hematochezia SKIN:Denies acute: rash, redness, lesions, itchiness. EXTREMITIES:Denies acute: calf pain, numbness, tingling, weakness, denies pain in extremity.Denies acute: Low back pain. Neuro:Denies acute: focal neurological deficit, motor or sensory focal neurological deficit, tremors, seizure like activity, confusion, , change in mental status, loss of bowel or bladder function, cauda equina like symptoms. : Denies acute: dysuria, hematuria, flank pain, increase in urinary frequency. PSYCH: Denies acute: hallucination, suicidal ideation, homicidal ideation. FEMALE: Denies acute: abnormal vaginal bleeding, foul odor, unusual discharge. Vital Signs Vital Signs Date Time Temp Pulse Resp B/P (MAP) Pulse Ox O2 Delivery O2 Flow Rate FiO2 03/21/25 16:49 97.9 88 17 145/64 (91) 96 97.9 03/21/25 08:00 Room Air* 0 21 Physical Exam GENERAL: Alert and oriented x 3. No acute distress. EYES: PERRL, EOMI. Anicteric. HENT: Moist mucous membranes. LUNGS: Clear to auscultation bilaterally. CARDIOVASCULAR: Regular rate and rhythm. ABDOMEN: Soft, nontender and nondistended. EXTREMITIES: No edema. NEUROLOGIC: No focal neurological deficits. SKIN: Warm, dry. Labs/Diagnostic Data Labs Test 03/21/25 05:23 03/20/25 20:23 03/20/25 18:36 03/20/25 15:49 Range/Units White Blood Count 9.3 # 4.4-10.8 10^3/uL Red Blood Count 4.36 4.0-5.20 10^6/uL Hemoglobin 12.8 12.2-16.2 g/dL Hematocrit 38.1 36.0-46.0 % Mean Corpuscular Volume 87.4 80.0-100.0 fL Mean Corpuscular Hemoglobin 29.4 28.0-32.0 pg Mean Corpuscular Hemoglobin Concent 33.6 32.0-36.0 g/dL Red Cell Distribution Width 14.2 11.8-14.3 % Platelet Count 264 140-450 10^3/uL Mean Platelet Volume 8.4 6.9-10.8 fL Neutrophils (%) (Auto) 61.8 37.0-80.0 % Lymphocytes (%) (Auto) 29.0 10.0-50.0 % Monocytes (%) (Auto) 6.6 0.0-12.0 % Eosinophils (%) (Auto) 2.1 0.0-7.0 % Basophils (%) (Auto) 0.5 0.0-2.0 % Neutrophils # (Auto) 5.7 1.6-8.6 10 ^3/uL Lymphocytes # (Auto) 2.7 0.4-5.4 10 ^3/uL Monocytes # (Auto) 0.6 0-1.3 10 ^3/uL Eosinophils # (Auto) 0.2 0-0.8 10 ^3/uL Basophils # (Auto) 0 0-0.2 10 ^3/uL Nucleated Red Blood Cells 0.1 % Sodium Level 141 136-145 mmol/L Potassium Level 3.5 3.5-5.1 mmol/L Chloride Level 106 98-107 mmol/L Carbon Dioxide Level 24 20-31 mmol/L Anion Gap 11 5-15 Blood Urea Nitrogen 17 9-23 mg/dL Creatinine 0.88 0.550-1.02 mg/dL Glomerular Filtration Rate Calc 63 >90 mL/min BUN/Creatinine Ratio 19.3 10.0-20.0 Serum Glucose 87 74-106 mg/dL Calcium Level 9.9 8.7-10.4 mg/dL Total Bilirubin 0.7 0.2-1.0 mg/dL Aspartate Amino Transferase (AST) 23 <34 U/L Alanine Aminotransferase (ALT) 13 7-40 U/L Alkaline Phosphatase 70 46-116 U/L Total Protein 6.6 5.7-8.2 g/dL Albumin 4.2 3.2-4.8 g/dL Thyroid Stimulating Hormone (TSH) 0.81 0.55-4.78 uIU/mL Urine Color Yellow Yellow Urine Clarity Clear Clear Urine pH 6.5 5.0-9.0 Urine Specific [place] 1.020 1.001-1.035 Urine Protein Negative Negative Urine Ketones Negative Negative Urine Blood Negative Negative /uL Urine Nitrite Negative Negative Urine Bilirubin Negative Negative Urine Urobilinogen Normal Negative mg/dL Urine Leukocyte Esterase 3+ Negative /uL Urine RBC 3 0 - 4 /hpf Urine Microscopic WBC 48 H 0-5 /HPF Urine Squamous Epithelial Cells Few <5 /hpf Urine Bacteria None seen None Seen /hpf Urine Glucose Normal Normal mg/dL Troponin I High Sensitivity 4 </=34 ng/L Lactic Acid Level 1.2 0.4-2.0 mmol/L Magnesium Level 2.3 1.6-2.6 mg/dL Assessment Syncope. Hypertension. Lung infiltrate. UTI. Generalized weakness. Plan/Recommendation I agree with your ongoing assessment and care of plan. Telemetry reviewed. Echocardiogram. IV antibiotics as ordered. IV Hydralazine for SBP > 150. Lisinopril. Nitro SL. Additional plan as per the hospital course. A total of 45 minutes was spent reviewing the patient record, examining the patient, making a diagnostic and therapeutic plan, discussing this plan with medical personnel, following up on diagnostic studies and following the patient for clinical stability excluding any and all procedures. At least 50% of this time was spent in direct, [id number] contact. Plan discussed with: Patient ARTIE GLORIA MD Mar 21, 2025 21:20
[2025-03-22] VITALS (8 sets, daily range): BP systolic 136–179; BP diastolic 72–93; PULSE 67–110; RESP 16–18; TEMP 97.2–98.4; O2SAT 92–96
--- NOTE | 2025-03-22 00:50 | DVHSR ---
APPROVED REPORT EXAM: Two-dimensional and M-mode echocardiogram with Doppler and color Doppler. Blood Pressure: 166/76 mmHg INDICATION Syncope RISK FACTORS Height: 5'7, DIMENSIONS LVDd3.9 (3.8-5.7cm)LA (2D)4.5 (1.9-4.0cm)Aortic Root3.3 (2.0-3.7cm) LVDs2.8 (2.5-4.0cm)LA (MM) (1.9-4.0cm)Aortic Cusp Exc1.5 (1.5-2.0cm) EF (%) 58.0 (55-70%)Rt. Atrium3.0 (1.9-4.0cm)Asc. Aorta cm IVSd0.9 (0.7-1.1cm)RV (D) (1.8-2.4cm) PWd0.9 (0.7-1.1cm) Mitral Valve MitralMitral Stenosis E wave0.73m/sMV Mean GR.mmHg A wave0.85m/sMV Peak GR.88mmHg E/A ratio0.92D MVAcm2 DECEL [id number] 1/2 Timems Aortic Valve Aortic ValveAortic Stenosis V11.14m/Oscar Mean GR.3mmHg V21.28m/Oscar Peak GR.7mmHg LVOT Diameter2.2 (1.8-2.4cm)Doppler AVA3.38cm2 Tricuspid Valve TR Velocity2.36m/s [id number] Other Information Technically limited study due to body habitus. Conclusion LV EF IS 58% AND IS NORMAL MILD LVH AND MILD LV DIASTOLIC DYSFUNCTION SLIGHTLY DILATED LA DYSKINESIS OF IVS NORMAL VALVES NO EFFUSION NORMAL RV FUNCTION
[2025-03-22] MEDS: LORazepam 2MG/ML-1ML VIAL IV ONE (07:57)
--- NOTE | 2025-03-22 08:45 | DVHPN2 ---
Reviewed: Care Plan, H&P, Labs, Medications, Previous Orders, Radiology Changes from previous H/P or p: No Changes Eyes: No Pain, No Vision change, No Conjunctivae inflammation, No Eyelid inflammation, No Other, No Redness ENT: No Ear pain, No Ear discharge, No Nose pain, No Nose discharge, No Nose congestion, No Mouth pain, No Mouth swelling, No Throat pain, No Throat swelling, No Other Cardiovascular: No Chest Pain, No Palpitations, No Orthopnea, No Paroxysmal Noc. Dyspnea, No Edema, No Lt Headedness; Other (Syncope) Respiratory: No Cough, No Dry, No Shortness of breath, No SOB with excertion, No Wheezing, No Hemoptysis, No Pleuritic Pain, No Sputum, No Other Gastrointestinal: No Nausea, No Vomiting, No Abdominal Pain, No Diarrhea, No Constipation, No Melena, No Hematochezia, No Other Genitourinary: No Dysuria, No Frequency, No Incontinence, No Hematuria, No Retention, No Other Musculoskeletal: No other, No neck pain, No shoulder pain, No arm pain, No back pain, No hand pain, No leg pain, No foot pain Skin: No Rash, No Lesions, No Jaundice, No Bruising, No Other Objective Vitals Vital Signs Date Time Temp Pulse Resp B/P (MAP) Pulse Ox O2 Delivery O2 Flow Rate FiO2 03/22/25 05:00 97.2 92 17 146/81 (102) 95 97.2 03/21/25 20:00 Room Air* 0 21 Intake/Output Intake and Output 03/22/25 07:00 Intake Total 1630 ml Balance 1630 ml Intake Oral 1380 ml IV Total 250 ml # Voids 6 # Bowel Movements 1 Medications Current Medications Medications Dose Ordered Sig/Herlinda Route Start Time Stop Time Status Last Admin Dose Admin Hydralazine HCl 10 mg Q6HP PRN IV 03/20/25 23:15 Lisinopril 20 mg DAILY PO 03/21/25 10:00 03/21/25 09:23 20 MG Ondansetron HCl 4 mg Q4HP PRN IV 03/20/25 23:15 Docusate Sodium 100 mg BIDPRN PRN PO 03/20/25 23:15 Nitroglycerin 0.4 mg Q5MINP PRN SL 03/20/25 23:15 Morphine Sulfate 2 mg Q30M PRN IV 03/20/25 23:45 Hold Azithromycin 250 ml @ 125 mls/hr DAILY IV 03/21/25 10:00 03/21/25 09:23 125 MLS/HR Ceftriaxone Sodium 50 ml @ 100 mls/hr DAILY@09 IV 03/22/25 09:00 Laboratory Results Laboratory Tests 03/21/25 05:23 Urinalysis Test 03/20/25 20:23 Urine Color Yellow (Yellow) Urine Clarity Clear (Clear) Urine pH 6.5 (5.0-9.0) Urine Specific [place] 1.020 (1.001-1.035) Urine Protein Negative (Negative) Urine Ketones Negative (Negative) Urine Blood Negative /uL (Negative) Urine Nitrite Negative (Negative) Urine Bilirubin Negative (Negative) Urine Urobilinogen Normal mg/dL (Negative) Urine Leukocyte Esterase 3+ /uL (Negative) Urine RBC 3 /hpf (0 - 4) Urine Microscopic WBC 48 /HPF (0-5) H Urine Squamous Epithelial Cells Few /hpf (<5) Urine Bacteria None seen /hpf (None Seen) Urine Glucose Normal mg/dL (Normal) Labs and/or images reviewed: Labs reviewed by me, Image(s) reviewed by me Assessment/Plan Assessment/Plan Syncope : CT head negative, carotid ultrasound negative, echocardiogram normal 55 percent ejection cardiology consult by Dr. Chairez appreciated Hypertension Partial complex seizure: Neurology consult appreciated, MRI brain result pending TIA/stroke Possible community-acquired pneumonia: Azithromycin, UTI: Urine cultures pending, Rocephin Alzheimer dementia Generalized weakness Daughter Isaura at bedside Not stable for transfer to [facility] Patient is full code Time spent 50 mts Advanced care planning time 20 mts Check rapid flu test and COVID test Plan discussed with: Patient, Daughter My Orders Orders - DARRIN TERRY MD Procedure Category Date Status Time Head Without Contrast CT 03/21/25 Resulted 12:50 Carotid Duplx W Color US 03/21/25 Resulted DOP 12:50 Urine Bacterial CRISSY 03/21/25 In Process Culture 12:57 Ceftriaxone 1gm/50ml PHA 03/22/25 In Process D5w (Rocephin) 09:00 Echo 2d Mode Cardiac US 03/21/25 Resulted DOP 12:57 * Cardiology Consult CONS 03/21/25 Transmitted 12:57 * Neurology Consult CONS 03/21/25 Transmitted 12:57 Date of Service: Mar 22, 2025 Billing Provider: DARRIN TERRY MD Common Visit Codes: [id number] INP/OBS CARE(HIGH) DARRIN TERRY MD Mar 22, 2025 08:45
--- NOTE | 2025-03-22 09:00 | DVH ---
MR brain done without contrast HISTORY: Sz, dementia Comparison: CT brain done 03/21/2025 TECHNIQUE: MR was performed with a surface coil at 1.5 T magnet. Sagittal, axial and coronal T1 and T 2-weighted images were obtained. FINDINGS: No areas of restricted diffusion on diffusion-weighted images. Punctate area of T2 star signal hypointensity in the right frontal lobe on gradient echo images. [place] area of T2 star signal hypointensity in the left occipital white matter. These most likely repre sent hemosiderin deposits Extensive areas of T2 signal hyperintensity in the periventricular and deep frontoparietal white marcy er on FLAIR sequences There is no hydrocephalus. There is no midline shift. There are no extra-axial fluid collections. The orbits paranasal sinuses and cerebellopontine angles are unremarkable in appearance. Partially empty sella turcica. IMPRESSION: 1. Atrophy with periventricular leukoencephalopathy. No acute pathology
[2025-03-22] MEDS: cefTRIAXone 1GM/50ML D5W 50 ML IV SCH (09:11)
[2025-03-22 19:19] LABS: COVID19 ANTIGEN SOFIA FIA NEGATIVE (NEGATIVE); Rapid Influenza A Negative (Negative); Rapid Influenza B Negative (Negative)
--- NOTE | 2025-03-22 22:58 | DVHPN2 ---
Progress Note - Dictate Date Seen: Mar 22, 2025 Medical Necessity Reason Pt with a Central, PICC or Fol: No Subjective Patient was seen and evaluated in follow-up. Patient complains of generalized pain. MRI brain shows atrophy with periventricular leukoencephalopathy. No acute pathology. Echocardiogram showed an EF of 58%. Telemetry reviewed. vital signs Vital Sign Date Time Temp Pulse Resp B/P (MAP) Pulse Ox O2 Delivery O2 Flow Rate FiO2 03/22/25 16:48 98.0 79 16 136/78 (97) 95 98.0 03/22/25 08:00 Room Air* 0 21 Total Intake and Output 03/21/25 03/21/25 03/22/25 15:00 23:00 07:00 Intake Total 250 ml 900 ml 480 ml Balance 250 ml 900 ml 480 ml medications Current Medications Medications Dose Ordered Sig/Herlinda Route Start Time Stop Time Status Last Admin Dose Admin Hydralazine HCl 10 mg Q6HP PRN IV 03/20/25 23:15 Lisinopril 20 mg DAILY PO 03/21/25 10:00 03/21/25 09:23 20 MG Ondansetron HCl 4 mg Q4HP PRN IV 03/20/25 23:15 Docusate Sodium 100 mg BIDPRN PRN PO 03/20/25 23:15 Nitroglycerin 0.4 mg Q5MINP PRN SL 03/20/25 23:15 Morphine Sulfate 2 mg Q30M PRN IV 03/20/25 23:45 Hold Azithromycin 250 ml @ 125 mls/hr DAILY IV 03/21/25 10:00 03/22/25 10:00 125 MLS/HR Ceftriaxone Sodium 50 ml @ 100 mls/hr DAILY@09 IV 03/22/25 09:00 03/22/25 09:11 100 MLS/HR objective GENERAL: Alert and oriented x 3. No acute distress. EYES: PERRL, EOMI. Anicteric. HENT: Moist mucous membranes. LUNGS: Clear to auscultation bilaterally. CARDIOVASCULAR: Regular rate and rhythm. ABDOMEN: Soft, nontender and nondistended. EXTREMITIES: No edema. NEUROLOGIC: No focal neurological deficits. SKIN: Warm, dry. laboratory and microbiology Laboratory Tests 03/21/25 05:23 Test 03/21/25 05:23 Range/Units Serum Glucose 87 74-106 mg/dL Problem List Syncope. Hypertension. Lung infiltrate. UTI. Generalized weakness. Assessment/Plan Continued all current supportive medical care. IV antibiotics as ordered. IV Hydralazine for SBP > 150. Lisinopril. Nitro SL. Additional plan as per the hospital course. A total of 25 minutes was spent reviewing the patient record, examining the patient, making a diagnostic and therapeutic plan, discussing this plan with medical personnel, following up on diagnostic studies and following the patient for clinical stability excluding any and all procedures. At least 50% of this time was spent in direct, [id number] contact. Plan discussed with: Patient ARTIE GLORIA MD Mar 22, 2025 18:14
[2025-03-23 01:00] VITALS: BP 148/116; PULSE 86; RESP 17; TEMP 97.9; O2SAT 94
[2025-03-23 05:00] VITALS: BP 145/82; PULSE 92; RESP 16; TEMP 98.1; O2SAT 95
[2025-03-23] MEDS: hydrALAZINE HCL 20 MG/ML VL IV PRN (06:36)
[2025-03-23 08:00] VITALS: PULSE 85
[2025-03-23 09:17] VITALS: BP 139/72; PULSE 86; RESP 19; TEMP 97.9; O2SAT 97
[2025-03-23] MEDS ORDERED: AZIT500T66 PO (09:44)
--- NOTE | 2025-03-23 09:46 | DVHPN2 ---
Reviewed: Care Plan, H&P, Labs, Medications, Previous Orders, Radiology Changes from previous H/P or p: No Changes Eyes: No Pain, No Vision change, No Conjunctivae inflammation, No Eyelid inflammation, No Other, No Redness ENT: No Ear pain, No Ear discharge, No Nose pain, No Nose discharge, No Nose congestion, No Mouth pain, No Mouth swelling, No Throat pain, No Throat swelling, No Other Cardiovascular: No Chest Pain, No Palpitations, No Orthopnea, No Paroxysmal Noc. Dyspnea, No Edema, No Lt Headedness; Other (Syncope) Respiratory: No Cough, No Dry, No Shortness of breath, No SOB with excertion, No Wheezing, No Hemoptysis, No Pleuritic Pain, No Sputum, No Other Gastrointestinal: No Nausea, No Vomiting, No Abdominal Pain, No Diarrhea, No Constipation, No Melena, No Hematochezia, No Other Genitourinary: No Dysuria, No Frequency, No Incontinence, No Hematuria, No Retention, No Other Musculoskeletal: No other, No neck pain, No shoulder pain, No arm pain, No back pain, No hand pain, No leg pain, No foot pain Skin: No Rash, No Lesions, No Jaundice, No Bruising, No Other Objective Vitals Vital Signs Date Time Temp Pulse Resp B/P (MAP) Pulse Ox O2 Delivery O2 Flow Rate FiO2 03/23/25 09:17 97.9 86 19 139/72 (94) 97 97.9 03/22/25 19:55 Room Air* 0 21 Intake/Output Intake and Output 03/23/25 07:00 Intake Total 1350 ml Balance 1350 ml Intake Oral 1050 ml IV Total 300 ml # Voids 5 Medications Current Medications Medications Dose Ordered Sig/Herlinda Route Start Time Stop Time Status Last Admin Dose Admin Hydralazine HCl 10 mg Q6HP PRN IV 03/20/25 23:15 03/23/25 06:36 10 MG Lisinopril 20 mg DAILY PO 03/21/25 10:00 03/21/25 09:23 20 MG Ondansetron HCl 4 mg Q4HP PRN IV 03/20/25 23:15 Docusate Sodium 100 mg BIDPRN PRN PO 03/20/25 23:15 Nitroglycerin 0.4 mg Q5MINP PRN SL 03/20/25 23:15 Morphine Sulfate 2 mg Q30M PRN IV 03/20/25 23:45 Hold Azithromycin 250 ml @ 125 mls/hr DAILY IV 03/21/25 10:00 03/22/25 10:00 125 MLS/HR Ceftriaxone Sodium 50 ml @ 100 mls/hr DAILY@09 IV 03/22/25 09:00 03/22/25 09:11 100 MLS/HR Laboratory Results Laboratory Tests 03/21/25 05:23 Urinalysis Test 03/20/25 20:23 Urine Color Yellow (Yellow) Urine Clarity Clear (Clear) Urine pH 6.5 (5.0-9.0) Urine Specific [place] 1.020 (1.001-1.035) Urine Protein Negative (Negative) Urine Ketones Negative (Negative) Urine Blood Negative /uL (Negative) Urine Nitrite Negative (Negative) Urine Bilirubin Negative (Negative) Urine Urobilinogen Normal mg/dL (Negative) Urine Leukocyte Esterase 3+ /uL (Negative) Urine RBC 3 /hpf (0 - 4) Urine Microscopic WBC 48 /HPF (0-5) H Urine Squamous Epithelial Cells Few /hpf (<5) Urine Bacteria None seen /hpf (None Seen) Urine Glucose Normal mg/dL (Normal) Microbiology Microbiology Date/Time Source Procedure Growth Status 03/20/25 20:23 Voided Urine Urine Culture - Preliminary Resulted Labs and/or images reviewed: Labs reviewed by me, Image(s) reviewed by me Assessment/Plan Assessment/Plan Syncope : CT head negative, MRI brain neg carotid ultrasound negative, echocardiogram normal 55 percent ejection cardiology consult by Dr. Chairez appreciated Hypertension Partial complex seizure: Neurology consult appreciated, TIA/stroke Possible community-acquired pneumonia: Azithromycin, UTI: Urine cultures negative Rocephin Alzheimer dementia Flu test negative COVID test neg Generalized weakness Daughter Isaura at bedside Patient feels better and wants to go home Plan discussed with: Patient Date of Service: Mar 23, 2025 Billing Provider: DARRIN TERRY MD Common Visit Codes: [id number] INP/OBS CARE(HIGH) DARRIN TERRY MD Mar 23, 2025 09:46
[2025-03-23 10:52] VITALS: BP 139/72
[2025-03-23 11:23] LABS: Free T4 (Free Thyroxine) 1.09 ng/dL (0.89-1.76)
--- NOTE | 2025-03-23 11:27 | DVHPN2 ---
Progress Note - Dictate Date Seen: Mar 23, 2025 Medical Necessity Reason Pt with a Central, PICC or Fol: No Subjective Ms. Jones is a 89 years old right-handed female with a history of hypertension, hyperkalemia, dementia, she was brought to the [facility] on 03/20/2025 with a chief company of syncopal event I have seen and examined the patient, I have talked to her nurse, her daughter in the room, and confirmed the history of passing out and dementia Has good social skills, she is oriented to person, place Urinalysis, 03/20/2025, WBC: 48, urine leukocyte esterase: 3+ CBC, 03/21/2025: Unremarkable CMP, 03/21/2025: Unremarkable TSH, 03/21/2025: 0.81 Carotid Doppler, 03/21/2025: No without evidence of hemodynamically significant CCA or ICA stenosis. CT head, 03/21/2025: No acute intracranial abnormality MRI head, 03/22/2025: Atrophy with periventricular leukoencephalopathy. No acute pathology vital signs Vital Sign Date Time Temp Pulse Resp B/P (MAP) Pulse Ox O2 Delivery O2 Flow Rate FiO2 03/23/25 09:17 97.9 86 19 139/72 (94) 97 97.9 03/23/25 07:30 Room Air* 0 21 Total Intake and Output 03/22/25 03/22/25 03/23/25 15:00 23:00 07:00 Intake Total 300 ml 500 ml 550 ml Balance 300 ml 500 ml 550 ml medications Current Medications Medications Dose Ordered Sig/Herlinda Route Start Time Stop Time Status Last Admin Dose Admin Hydralazine HCl 10 mg Q6HP PRN IV 03/20/25 23:15 03/23/25 06:36 10 MG Lisinopril 20 mg DAILY PO 03/21/25 10:00 03/21/25 09:23 20 MG Ondansetron HCl 4 mg Q4HP PRN IV 03/20/25 23:15 Docusate Sodium 100 mg BIDPRN PRN PO 03/20/25 23:15 Nitroglycerin 0.4 mg Q5MINP PRN SL 03/20/25 23:15 Morphine Sulfate 2 mg Q30M PRN IV 03/20/25 23:45 Hold Azithromycin 250 ml @ 125 mls/hr DAILY IV 03/21/25 10:00 03/22/25 10:00 125 MLS/HR Ceftriaxone Sodium 50 ml @ 100 mls/hr DAILY@09 IV 03/22/25 09:00 03/23/25 09:35 100 MLS/HR objective General: the patient is well developed and nourished. No acute distress. MENTAL STATUS: Subjective SPEECH, LANGUAGE, HIGHER CORTICAL FUNCTION: no aphasia or dysathria. CRANIAL NERVES: Pupils are equal, round and reactive. EOMs full and conjugate. Facial sensation intact in all three divisions bilaterally. Mandibular strength intact. Facial muscles symmetrical and strength intact. SENSATION: Sensation to touch and pinprick is normal. MOTOR: Normal tone in the upper and lower extremity. Normal muscle bulk. No fasciculations. No abnormal movements or posturing. Muscle strength of the major groups in the extremities is 5/5. REFLEXES: Deep tendon reflexes normal and symmetrical. No pathological reflexes. CEREBELLAR/COORDINATION: Finger to nose is normal bilaterally. GAIT/STATION: deferred. laboratory and microbiology Laboratory Tests 03/21/25 05:23 Test 03/21/25 05:23 Range/Units Serum Glucose 87 74-106 mg/dL Problem List Passing out event on 03/20/2025 Syncope Partial complex seizure, less likely TIA/stroke, less likely Cognitive dysfunction, she had dementia Alzheimer disease Other etiology Urinary tract infection Assessment/Plan Monitoring Supportive treatment Telemetry Vitamin B12, folic acid EEG A trial of Aricept 5 mg q.d. and escalate IV antiemetics Up to chair Physical therapy Cardiology evaluation More recommendation per clinical course This medical document was created using an electronic medical record system with [employer] dictation system. Although this document has been carefully reviewed, there may still be some phonetic and typographical errors. These areas are purely typographical due to imperfections of the software programs, and do not reflect any compromise in the patient's medical care. Prognosis poor Plan discussed with: Daughter, Other Total Time (mins): 35 RELL SAN MD Mar 23, 2025 11:27
[2025-03-23 11:39] LABS: Folate (Folic Acid) 29.58 ng/mL (>5.38)
[2025-03-23] MEDS ORDERED: DONEPEZIL HYDROCHLORIDE 5 MG TAB PO SCH (22:00)
--- NOTE | 2025-03-23 22:22 | DVHPN2 ---
Progress Note - Dictate Date Seen: Mar 23, 2025 Medical Necessity Reason Pt with a Central, PICC or Fol: No Subjective Patient was seen and evaluated in follow up. Patient has no new complaints at this time. Patient denies any cardiac symptoms. Patient is cardiac stable for discharge. Telemetry reviewed. vital signs Vital Sign Date Time Temp Pulse Resp B/P (MAP) Pulse Ox O2 Delivery O2 Flow Rate FiO2 03/23/25 09:17 97.9 86 19 139/72 (94) 97 97.9 03/23/25 07:30 Room Air* 0 21 Total Intake and Output 03/22/25 03/22/25 03/23/25 15:00 23:00 07:00 Intake Total 300 ml 500 ml 550 ml Balance 300 ml 500 ml 550 ml objective GENERAL: Alert and oriented x 3. No acute distress. EYES: PERRL, EOMI. Anicteric. HENT: Moist mucous membranes. LUNGS: Clear to auscultation bilaterally. CARDIOVASCULAR: Regular rate and rhythm. ABDOMEN: Soft, nontender and nondistended. EXTREMITIES: No edema. NEUROLOGIC: No focal neurological deficits. SKIN: Warm, dry. laboratory and microbiology Laboratory Tests 03/21/25 05:23 Test 03/21/25 05:23 Range/Units Serum Glucose 87 74-106 mg/dL Problem List Syncope. Hypertension. Lung infiltrate. UTI. Generalized weakness. Assessment/Plan Continued all current supportive medical care. IV antibiotics as ordered. IV Hydralazine for SBP > 150. Lisinopril. Nitro SL. Additional plan as per the hospital course. A total of 25 minutes was spent reviewing the patient record, examining the patient, making a diagnostic and therapeutic plan, discussing this plan with medical personnel, following up on diagnostic studies and following the patient for clinical stability excluding any and all procedures. At least 50% of this time was spent in direct, [id number] contact. Plan discussed with: Patient ARTIE GLORIA MD Mar 23, 2025 22:22
== END 2025-03-23 14:38 | disposition home or self-care (01) | DRG 690 ==
LOC: EDBD 14:51 → ER 14:51 → OVERFLOW 23:12 → TELE-CENTR 23:53
PROVIDERS: ADMIT Family Medicine; ATTEND Family Medicine
DX: N30.00 Acute cystitis without hematuria (principal); Z20.822 Contact with and (suspected) exposure to COVID-19; I16.0 Hypertensive urgency; R91.8 Other nonspecific abnormal finding of lung field; I95.9 Hypotension, unspecified; G30.9 Alzheimer's disease, unspecified; F02.80 Dementia in other diseases classified elsewhere, unspecified severity, without behavioral disturbance, psychotic disturbance, mood disturbance, and anxiety; F17.200 Nicotine dependence, unspecified, uncomplicated; Z82.49 Family history of ischemic heart disease and other diseases of the circulatory system; I10 Essential (primary) hypertension; Z88.8 Allergy status to other drugs, medicaments and biological substances; Z80.0 Family history of malignant neoplasm of digestive organs; Z82.3 Family history of stroke; Z79.899 Other long term (current) drug therapy
CPT/HCPCS: 36415; 70450; 70551; 71045; 80053; 81001; 82607; 82746; 83605; 83735; 84439; 84443; 84484; 85025; 87086; 87426; 87804; 93005; 93306; 93886; 96361; 96365; 97162; G0378